=== PATIENT | female | born 1955 | race Caucasian/White ===

== ENCOUNTER → 2020-01-14 | Day surgery (SDC) | payer BC, OTHER ==
[2020-01-11 13:44] LABS: BASOPHILS % 0.5 % (0.0-1.0); EOSINOPHILS # (AUTO) 0.1 (0.0-0.4); EOSINOPHILS % 1.5 % (0.0-6.0); HEMOGLOBIN 12.5 g/dL (12.0-16.0); LYMPHOCYTES # (AUTO) 1.9 (1.0-3.2); MEAN CORPUSCULAR HEMOGLOBIN 27.6 pg (28-32); MEAN CORPUSCULAR HGB CONC 32.1 g/dL (31-35); MEAN CORPUSCULAR VOLUME 86.1 fL (81-99); MONOCYTES # (AUTO) 0.5 (0.2-0.8); MONOCYTES % 6.4 % (4.4-11.3); NEUTROPHILS # (AUTO) 5.8 (2.1-6.9); NEUTROPHILS % 69.4 % (38.7-80.0); PLATELET COUNT 245 x10e3/uL (140-360); RED BLOOD COUNT 4.53 x10e6/uL (3.6-5.1); RED CELL DISTRIBUTION WIDTH 14.6 % (11.7-14.4)
[2020-01-11 14:01] LABS: ANION GAP 14.9 mmol/L (8-16); BLOOD UREA NITROGEN 14 mg/dL (7-26); BUN/CREATININE RATIO 16 (6-25); CALCIUM 9.2 mg/dL (8.4-10.2); CARBON DIOXIDE 23 mmol/L (22-29); CHLORIDE 105 mmol/L (98-107); EST GLOMERULAR FILTRATION RATE > 60 ML/MIN (60-); GLUCOSE 99 mg/dL (74-118); POTASSIUM 3.9 mmol/L (3.5-5.1); SODIUM 139 mmol/L (136-145)
[~2020-01-14] MED LIST: AMLODIPINE BESY10 MG PO; ASPIRIN325 MG PO; CEFTRIAXONE SOD 1 GM/NS 50 ML 50 ML IV ONE; CRANBERRY200 MG PO; DEXAMETHASONE SOD PHOS INJ 4 MG/ML VIAL ONE; ESTRACE42.5 GM TOP; ETOMIDATE 2 MG/ML 10 ML INJ IV ONE; IOPAMIDOL 300MG/ML 50ML INFUS..BTL IV ONE; IRBESARTAN150 MG PO; LATANOPROST2.5 ML OU; ONDANSETRON HCL INJ 2MG/ML 2ML 2 MG/ML VIAL ONE; PLAQUENIL200 MG PO; PLAVIX75 MG PO; PROTONIX20 MG PO; SEVOFLURANE INHAL SOLN 250 ML PEN BTL ONE; SIMVASTATIN20 MG PO; SYNTHROID50 MCG PO; VENLAFAXINE HCL50 MG PO; VITAMIN B-121000 MCG PO; VITAMIN D3250 MC1 PO
[2020-01-14 10:55] VITALS: BP 127/73
--- NOTE | 2020-01-14 13:34 | Operative Report ---
DATE OF PROCEDURE: 01/14/2020 SURGEON: Laci Martins MD PREOPERATIVE DIAGNOSES: 1. Multiple chronic urinary tract infections. 2. Clinical signs and symptoms of interstitial cystitis. POSTOPERATIVE DIAGNOSES: 1. Multiple chronic urinary tract infections. 2. Clinical signs and symptoms of interstitial cystitis. 3. Grade 2-3 cystocele, positive vaginal atrophy. PROCEDURES: 1. Cystourethroscopy with hydrodistention (entirely separate procedure for clinical signs and symptoms of interstitial cystitis). 2. Cystourethroscopy with left ureteral catheterization and left retrograde pyelogram (separate procedure for multiple chronic urinary tract infections). 3. Cystourethroscopy with right ureteral catheterization and right retrograde pyelogram (separate procedure for multiple chronic urinary tract infections). 4. Supervision of fluoroscopy. 5. Interpretation of retrograde pyelography. ANESTHESIA: General. ESTIMATED BLOOD LOSS: None. COMPLICATIONS: None. INDICATIONS: Ms. Howard is a very pleasant 64-year-old female with a history of multiple chronic urinary tract infections and clinical signs of interstitial cystitis. She and I had a long discussion about alternatives, risks, and benefits of doing nothing, cystoscopy, IVP, retrograde pyelogram, and ultrasound. She voiced understanding of the options, alternatives, risks, and benefits and elected to proceed. PROCEDURE IN DETAIL: After informed consent was obtained, the patient was taken to the operative suite, placed supine on the operative table, underwent general anesthesia by the Anesthesia Service, placed in dorsal lithotomy position, and sterilely prepped and draped for cystoscopy. A 21-Gabonese cystoscope was inserted per urethra and normal urethra was noted. Panendoscopy of the bladder revealed no tumors, no stones. Both ureteral orifices were normal in anatomic location and position, efflux clear urine. 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 Hydrodistention was performed with a capacity of only 600 mL. No glomerulations. No Hunner's ulcers. Bilateral retrograde pyelogram was performed, which were normal, although there are air bubble filling defects. The bladder was drained. The patient was awakened from anesthesia and transported to recovery room in excellent condition. Supervision of fluoroscopy and interpretation of retrograde pyelography: I was present for the entire procedure and supervised fluoroscopy. There was no radiologist present. Attention was turned to the left and right ureteral orifices, which were catheterized with an 8-Gabonese cone-tipped catheter. In retrograde fashion, contrast was injected revealing delicate ureters, delicate pelvocaliceal systems. No evidence of filling defects. No evidence of hydronephrosis. IMPRESSION: Normal retrograde pyelograms. MD JACE Ulrich/MODL /[id number]
== END | disposition home or self-care (01) ==
LOC: OR 07:06 → EDBD 09:30
PROVIDERS: ATTEND Urology
DX: N30.80 Other cystitis without hematuria (principal); N81.10 Cystocele, unspecified; N95.2 Postmenopausal atrophic vaginitis; R35.1 Nocturia; N39.46 Mixed incontinence; N32.89 Other specified disorders of bladder; I10 Essential (primary) hypertension; M32.9 Systemic lupus erythematosus, unspecified; Z01.810 Encounter for preprocedural cardiovascular examination; Z01.812 Encounter for preprocedural laboratory examination; Z11.59 Encounter for screening for other viral diseases; Z79.02 Long term (current) use of antithrombotics/antiplatelets; Z79.82 Long term (current) use of aspirin; Z86.73 Personal history of transient ischemic attack (TIA), and cerebral infarction without residual deficits
CPT/HCPCS: 36415; 52005; 74420; 80048; 85025; 87635; 93005; C1758; C1769; J0696; J2405; Q9967